=== PATIENT | male | born 1975 | race Caucasian/White ===

== ENCOUNTER 2017-01-30 04:28 | Emergency (ER) | payer OTHER ==
[~2017-01-30] VITALS: Ht 177.8 cm; Wt 77.1 kg
[~2017-01-30 04:28] MED LIST: ZOFRAN ODT4 MG PO
== END 2017-01-30 05:00 | disposition left against medical advice (07) ==
LOC: ED 04:28
DX: R30.0 Dysuria (principal); Z53.21 Procedure and treatment not carried out due to patient leaving prior to being seen by health care provider; F17.200 Nicotine dependence, unspecified, uncomplicated; Z88.0 Allergy status to penicillin; Z98.890 Other specified postprocedural states
CPT/HCPCS: 99282

== ENCOUNTER 2017-11-25 05:33 | Emergency (ER) | payer SELFPAY ==
[~2017-11-25] VITALS: Ht 177.8 cm; Wt 77.1 kg
[2017-11-25] MEDS ORDERED: CEPHALEXIN500 MG PO (06:04)
== END 2017-11-25 06:27 | disposition home or self-care (01) ==
LOC: ED 05:33
PROC: 3E0T3BZ Introduction of Anesthetic Agent into Peripheral Nerves and Plexi, Percutaneous Approach (ICD-10-PCS; principal; 2017-11-25)
DX: S50.851A Superficial foreign body of right forearm, initial encounter (principal); W45.8XXA Other foreign body or object entering through skin, initial encounter; F17.200 Nicotine dependence, unspecified, uncomplicated; Z88.0 Allergy status to penicillin
CPT/HCPCS: 64450; 90471; 90715; 99283